=== PATIENT | female | born 1955 | race Caucasian/White ===

== ENCOUNTER 2017-01-19 08:15 | Outpatient (CLI) | payer OTHER ==
[2017-01-19 12:46] LABS: ALT (SGPT) 17 U/L (0-55); AST (SGOT) 18 U/L (5-34); Alkaline Phosphatase 113 U/L (40-150); Anion Gap 16 mmol/L (10-20); BUN (Urea Nitrogen) 26 mg/dL (9.8-20.1); Bilirubin, Total 0.5 mg/dL (0.2-1.2); Calc. Creatinine Clearance 0 mL/min (70-130); Calcium 10.2 mg/dL (7.8-10.44); Carbon Dioxide 27 mmol/L (23-31); Chloride 100 mmol/L (98-107); Estimated GFR-MDRD 23; Globulin 3.4 g/dL (2.4-3.5); LDL Cholesterol, Calculated 81 mg/dL; Protein, Total 7.5 g/dL (5.8-8.1)
[2017-01-19 13:09] LABS: Hemoglobin A1c 6.6 % (4.0-6.0)
== END 2017-01-19 08:16 ==
LOC: NAVSJIPCSP 08:15
PROVIDERS: ATTEND Internal Medicine
DX: Z51.81 Encounter for therapeutic drug level monitoring (principal); Z79.899 Other long term (current) drug therapy
CPT/HCPCS: 36415; 80053; 80061; 83036

== ENCOUNTER 2017-04-16 08:07 | Outpatient (CLI) | payer OTHER ==
[2017-04-16 12:18] LABS: Hemoglobin A1c 6.5 % (4.0-6.0)
[2017-04-16 12:23] LABS: Anion Gap 18 mmol/L (10-20); BUN (Urea Nitrogen) 28 mg/dL (9.8-20.1); Calc. Creatinine Clearance 0 mL/min (70-130); Calcium 9.2 mg/dL (7.8-10.44); Carbon Dioxide 22 mmol/L (23-31); Cardiac Risk 2.6 (Less than 4.5); Chloride 106 mmol/L (98-107); Cholesterol 145 mg/dl (< 200 Desired); Estimated GFR-MDRD 22; Glucose 115 mg/dL (80-115); HDL Cholesterol 56 mg/dL (>60 Neg Risk); LDL Cholesterol, Calculated 67 mg/dL; Potassium 4.3 mmol/L (3.5-5.1); Sodium 142 mmol/L (136-145); Triglycerides 110 mg/dL (Less than 150)
== END 2017-04-16 08:08 ==
LOC: NAVSJIPCSP 08:07
PROVIDERS: ATTEND Internal Medicine
DX: Z51.81 Encounter for therapeutic drug level monitoring (principal); Z79.899 Other long term (current) drug therapy
CPT/HCPCS: 36415; 80048; 80061; 83036

== ENCOUNTER 2017-04-28 08:49 | Outpatient (CLI) | payer OTHER ==
--- NOTE | 2017-04-28 11:03 | ULT ---
RENAL ULTRASOUND: Clinical history: Chronic renal disease. FINDINGS: Symmetric renal lengths of approximately 9 cm are seen bilaterally. Bilateral renal cysts are presen t, the largest of which is within the right kidney measuring just under 2 cm in size. Left renal cys ts are subcentimeter in size. No overt hydronephrosis. IMPRESSION: 1. Bilateral renal cysts. 2. No hydronephrosis. POS: [facility]
== END 2017-04-28 08:50 | disposition home or self-care (01) ==
LOC: NAV ULT 08:49
PROVIDERS: ATTEND Internal Medicine
DX: N18.4 Chronic kidney disease, stage 4 (severe) (principal); Q61.02 Congenital multiple renal cysts
CPT/HCPCS: 76770

== ENCOUNTER 2017-05-13 13:07 | Outpatient (CLI) | payer OTHER ==
[2017-05-13 14:02] LABS: Hemoglobin 12.3 g/dL (12.0-16.0); Mean Corpuscular HGB CONC 32.9 g/dL (32.0-36.0); Mean Corpuscular Volume 82.3 fl (81.0-99.0); Mean Platelet Volume 6.5 fL (7.4-10.4); Platelet Count 315 thou/uL (130-400); Red Blood Cell (RBC) Count 4.54 mill/uL (4.20-5.40); White Blood Cell (WBC) Count 8.1 thou/uL (4.8-10.8)
[2017-05-13 14:03] LABS: Albumin 3.9 g/dL (3.4-4.8); Anion Gap 17 mmol/L (10-20); BUN (Urea Nitrogen) 26 mg/dL (9.8-20.1); Calc. Creatinine Clearance 0 mL/min (70-130); Calcium 9.5 mg/dL (7.8-10.44); Carbon Dioxide 23 mmol/L (23-31); Chloride 102 mmol/L (98-107); Estimated GFR-MDRD 24; Glucose 116 mg/dL (80-115); Phosphorus 3.5 mg/dL (2.3-4.7); Potassium 4.2 mmol/L (3.5-5.1); Sodium 138 mmol/L (136-145)
[2017-05-14 17:32] LABS: Creatinine, Urine 44.24 mg/dL (47-110)
== END 2017-05-13 13:08 | disposition home or self-care (01) ==
LOC: NAVSJIPCSP 13:07
PROVIDERS: ATTEND Internal Medicine Nephrology
DX: I12.9 Hypertensive chronic kidney disease with stage 1 through stage 4 chronic kidney disease, or unspecified chronic kidney disease (principal); N18.4 Chronic kidney disease, stage 4 (severe); E11.00 Type 2 diabetes mellitus with hyperosmolarity without nonketotic hyperglycemic-hyperosmolar coma (NKHHC); E11.22 Type 2 diabetes mellitus with diabetic chronic kidney disease
CPT/HCPCS: 80048; 82040; 82306; 82570; 83520; 83970; 84100; 84156; 85027; 86021; 86038; 86160

== ENCOUNTER 2017-06-23 13:16 | Outpatient (CLI) | payer OTHER ==
[2017-06-23 14:56] LABS: Anion Gap 19 mmol/L (10-20); BUN (Urea Nitrogen) 28 mg/dL (9.8-20.1); Calc. Creatinine Clearance 0 mL/min (70-130); Calcium 9.5 mg/dL (7.8-10.44); Carbon Dioxide 21 mmol/L (23-31); Chloride 106 mmol/L (98-107); Estimated GFR-MDRD 23; Glucose 106 mg/dL (80-115); Potassium 4.4 mmol/L (3.5-5.1); Sodium 142 mmol/L (136-145)
[2017-06-23 15:00] LABS: Hemoglobin 12.5 g/dL (12.0-16.0)
== END 2017-06-23 13:17 | disposition home or self-care (01) ==
LOC: NAVSJIPCSP 13:16
PROVIDERS: ATTEND Internal Medicine
DX: I12.9 Hypertensive chronic kidney disease with stage 1 through stage 4 chronic kidney disease, or unspecified chronic kidney disease (principal); N18.4 Chronic kidney disease, stage 4 (severe); R80.9 Proteinuria, unspecified
CPT/HCPCS: 80048; 85014; 85018

== ENCOUNTER 2017-08-17 12:18 | Outpatient (CLI) | payer OTHER ==
[2017-08-17 15:57] LABS: Anion Gap 16 mmol/L (10-20); BUN (Urea Nitrogen) 37 mg/dL (9.8-20.1); Calc. Creatinine Clearance 0 mL/min (70-130); Calcium 9.6 mg/dL (7.8-10.44); Carbon Dioxide 22 mmol/L (23-31); Chloride 107 mmol/L (98-107); Estimated GFR-MDRD 23; Glucose 106 mg/dL (80-115); Potassium 4.1 mmol/L (3.5-5.1); Sodium 141 mmol/L (136-145)
== END 2017-08-17 12:19 | disposition home or self-care (01) ==
LOC: NAV LABSP 12:18 → NAVSJIPCSP 12:19
PROVIDERS: ATTEND Internal Medicine Nephrology
DX: I12.9 Hypertensive chronic kidney disease with stage 1 through stage 4 chronic kidney disease, or unspecified chronic kidney disease (principal); N18.4 Chronic kidney disease, stage 4 (severe)
CPT/HCPCS: 36415; 80048

== ENCOUNTER 2017-08-26 09:16 | Outpatient (CLI) | payer OTHER ==
--- NOTE | 2017-08-26 09:26 | RAD ---
PA AND LATERAL VIEWS OF THE CHEST: History: Shortness of breath. FINDINGS: The heart size is normal. No focal areas of consolidation, pneumothorax, or pleural effusions are se en. There are post op changes of right shoulder rotator cuff repair. IMPRESSION: No radiographic evidence of acute cardiopulmonary process. POS: [facility]
== END 2017-08-26 09:17 | disposition home or self-care (01) ==
LOC: NAV RAD 09:16
PROVIDERS: ATTEND Internal Medicine
DX: M54.6 Pain in thoracic spine (principal)
CPT/HCPCS: 71020

== ENCOUNTER 2018-03-14 09:00 | Outpatient (CLI) | payer OTHER | END 2018-03-14 09:01 | disposition home or self-care (01) | LOC: NAV DTY OP 09:00 | PROVIDERS: ATTEND Internal Medicine | DX: N18.3 Chronic kidney disease, stage 3 (moderate) (principal) | CPT/HCPCS: 97802 ==

== ENCOUNTER 2019-02-16 18:08 | Outpatient (CLI) | payer OTHER ==
--- NOTE | 2019-02-16 20:09 | RAD ---
CHEST TWO VIEWS: 02/16/19 HISTORY: Tuberculosis evaluation. Evaluate for dialysis. COMPARISON: 08/26/17. FINDINGS: The cardiac silhouette and pulmonary vasculature are unremarkable. Mediastinum is midline. No conflue nt air space consolidation, pneumothorax or pleural fluid. IMPRESSION: No active cardiopulmonary abnormalities are demonstrated. POS: [facility]
== END 2019-02-16 18:09 | disposition home or self-care (01) ==
LOC: NAV RAD 18:08
PROVIDERS: ATTEND Internal Medicine Nephrology
DX: I12.0 Hypertensive chronic kidney disease with stage 5 chronic kidney disease or end stage renal disease (principal); N18.5 Chronic kidney disease, stage 5
CPT/HCPCS: 71046